=== PATIENT | male | born 1965 | race Caucasian/White ===

== ENCOUNTER → 2017-02-06 | Outpatient (CLI) | payer OTHER ==
[2014-08-10 16:12] VITALS: BP 138/77
--- NOTE | 2017-02-06 16:59 | CT ---
HISTORY: Right hip pain. Right hip prosthesis was removed in 2014 secondary to infection with spacer placement. Study: CT pelvis and right hip without contrast Comparison: CT abdomen/pelvis dated August 10, 2014. Technique: Multiple axial images of the right hip and pelvis without administration of IV contrast. Sagittal and coronal reformats were performed and reviewed. 3D reformats were also performed. Dose re duction techniques including Automated Exposure Control (AEC) and adjustment of mA and kV were utiliz ed. 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 There is posterior displacement and fracture through the bone of the stem of the right femoral prosthesis. This is of unknown chronicity given the lack of comparison. The spacing material is part ially subluxed posteriorly at the abnormal appearing acetabulum. Large associated hip effusion. There is a motheaten appearance of the remaining bones of the proximal right femur. A decompression screw is seen within the left femoral head and appears intact. Remaining osseous structures appear intact. Remaining visualized soft tissue structures appear normal. IMPRESSION: 1. Likely chronic findings of the right hip as above. However, acute on chronic infection not entirel y excluded. If clinically concerned consider a 3 phase bone scan with sulfur colloid subtraction. 2. Remaining exam is unremarkable. Reported By:
== END | disposition home or self-care (01) | DRG 923 ==
LOC: RAD 09:48
PROVIDERS: ATTEND Orthopaedic Surgery
DX: T84.51XS Infection and inflammatory reaction due to internal right hip prosthesis, sequela (principal)
CPT/HCPCS: 73700

== ENCOUNTER → 2017-03-26 | Outpatient (CLI) | payer OTHER ==
[2014-08-10 16:12] VITALS: BP 138/77
[2017-03-26 11:33] LABS: BILIRUBIN,URINE NEGATIVE (NEGATIVE); BLOOD/HEMOGLOBIN,URINE NEGATIVE (NEGATIVE); GLUCOSE, URINE NEGATIVE (NEGATIVE); KETONES,URINE NEGATIVE (NEGATIVE); LEUKOCYTE ESTERASE ,URINE 1+ (NEGATIVE); NITRITES,URINE NEGATIVE (NEGATIVE); PROTEIN,URINE 1+ (NEGATIVE); UROBILINOGEN,URINE NORMAL (NORMAL)
[2017-03-26 11:36] LABS: BASOPHILS % (AUTO) 0.2 % (0.2-1.0); EOSINOPHILS # (AUTO) 0.3 x10^3/uL (0.0-0.2); EOSINOPHILS % (AUTO) 4.7 % (0.9-2.9); HEMATOCRIT 35.9 % (42.0-54.0); HEMOGLOBIN 12.2 g/dL (13.5-18.0); LYMPHOCYTES # (AUTO) 1.4 X10^3/uL (1.3-2.9); LYMPHOCYTES % (AUTO) 19.5 % (21.0-51.0); MEAN CORPUSCULAR HEMOGLOBIN 26.6 pg (27.0-34.0); MEAN CORPUSCULAR HGB CONC 33.9 g/dL (33.0-35.0); MEAN CORPUSCULAR VOLUME 78.5 fL (80.0-100.0); MEAN PLATELET VOLUME 8.1 fL (7.4-11.0); MONOCYTES # (AUTO) 0.5 x10^3/uL (0.3-0.8); MONOCYTES % (AUTO) 6.8 % (0.0-13.0); NEUTROPHILS # (AUTO) 5.1 x10^3/uL (2.2-4.8); NEUTROPHILS % (AUTO) 68.8 % (42.0-75.0); PLATELET COUNT 316 X10^3/uL (150.0-450.0); RED BLOOD COUNT 4.58 X10^6/uL (4.7-6.0); RED CELL DISTRIBUTION WIDTH 15.7 % (11.6-16.5); WHITE BLOOD COUNT 7.3 X10^3/uL (3.6-10.0)
[2017-03-26 11:41] LABS: APPEARANCE,URINE HAZY (CLEAR); BACTERIA,URINE TRACE /HPF (NEGATIVE); COLOR,URINE YELLOW (YELLOW); HYALINE CASTS, URINE FEW /LPF (NEGATIVE); RBC,URINE 0-2 /HPF (NEGATIVE); SQUAMOUS EPITHELIAL CELL,UR FEW /HPF (NEGATIVE)
[2017-03-26 11:46] LABS: ALANINE AMINOTRANSFERASE 18 Units/L (12-78); ALBUMIN 3.5 g/dL (3.4-5.0); ALKALINE PHOSPHATASE 113 Units/L (46-116); ASPARTATE AMINO TRANSFERASE 15 Units/L (15-37); BLOOD UREA NITROGEN 7 mg/dL (7-18); CALCIUM 8.7 mg/dL (8.5-10.1); CARBON DIOXIDE 29.6 mmol/L (21-32); CHLORIDE 102 mmol/L (98-107); COR NA(FOR HYPERGLY) 140 mmol/L (136-145); SODIUM 139 mmol/L (136-145); TOTAL PROTEIN 7.8 g/dL (6.4-8.2); eGFR BLACK RACES > 60 (>60); eGFR NON BLACK RACES > 60 (>60)
[2017-03-26 12:14] LABS: ERYTHROCYTE SEDIMENTATION RATE 41 MM/HOUR (0-15)
--- NOTE | 2017-03-26 12:55 | RAD ---
HISTORY: Preoperative exam for hip surgery Study: Two views of the chest Comparison: None Findings: The trachea is midline. The cardiac silhouette is unremarkable. Interstitial changes seen within marcio th lungs. IMPRESSION: 1. No acute cardiopulmonary disease. Reported By:
== END ==
LOC: LAB 10:55
PROVIDERS: ATTEND Orthopaedic Surgery
DX: Z01.818 Encounter for other preprocedural examination (principal); Z01.810 Encounter for preprocedural cardiovascular examination; Z01.811 Encounter for preprocedural respiratory examination; Z11.8 Encounter for screening for other infectious and parasitic diseases; Z79.899 Other long term (current) drug therapy; T84.51XS Infection and inflammatory reaction due to internal right hip prosthesis, sequela; X58.XXXS Exposure to other specified factors, sequela
CPT/HCPCS: 36415; 71020; 80053; 81001; 85025; 85652; 86140; 87640; 87641; 93005; 93010

== ENCOUNTER 2017-04-01 13:08 | Inpatient (IN) | payer OTHER ==
[2017-04-01] MEDS ORDERED: D5 LR 1000 ML 1,000 ML IV ONE (13:23)
[2017-04-01] MEDS ORDERED: DUONEB 0.5 MG/3 MG NEB ONE (13:36)
[2017-04-01] MEDS ORDERED: HYDROGEN PEROXIDE 3% ONE (13:50)
[2017-04-01] MEDS ORDERED: DILAUDID INJ ONE (13:56)
[2017-04-01] MEDS ORDERED: FENTANYL INJ 250 mcg ONE (13:57)
[2017-04-01] MEDS ORDERED: LR 1000 ML IV 1,000 ML IV ONE ×3 (14:55→18:50)
[2017-04-01] MEDS: VANCOMYCIN HCL 1 GM VIAL ONE ×2 (15:17→15:50)
[2017-04-01] MEDS: BACTROBAN OINT ONE ×2 (15:18→16:06)
[2017-04-01] MEDS ORDERED: NS IRRIGATION 1000 ML 1,000 ML with BACITRACIN VIAL 50,000 UNT IR ONE ×2 (15:19)
[2017-04-01] MEDS: NS 100 ML IV 100 ML IV ONE ×2 (15:19→15:50)
[2017-04-01] MEDS ORDERED: NS IRRIGATION 3000 ML 3,000 ML with BACITRACIN VIAL 50,000 UNT IR ONE ×4 (15:20)
[2017-04-01] MEDS ORDERED: NORCURON INJ 10 MG VIAL ONE (15:31)
[2017-04-01] MEDS ORDERED: EPHEDRINE SULFATE INJ ONE (15:31)
[2017-04-01] MEDS ORDERED: VERSED ONE (15:31)
[2017-04-01] MEDS ORDERED: DIPRIVAN VIAL ONE (15:31)
[2017-04-01] MEDS ORDERED: NEOSTIGMINE INJ ONE (15:31)
[2017-04-01] MEDS ORDERED: XYLOCAINE 2 % (PLAIN) ONE (15:31)
[2017-04-01] MEDS ORDERED: QUELICIN (OR ANECTINE) ONE (15:31)
[2017-04-01] MEDS ORDERED: ROBINUL ONE (15:31)
[2017-04-01] MEDS ORDERED: ZOFRAN INJ 4 MG VIAL ONE (15:31)
[2017-04-01] MEDS ORDERED: POLYMYXIN B SULFATE ONE (18:38)
[2017-04-01] MEDS ORDERED: BACITRACIN VIAL ONE (18:39)
[2017-04-01] MEDS ORDERED: NS 500 ML IV 500 ML IV ONE (18:50)
[2017-04-01] MEDS ORDERED: DILAUDID INJ IVP PRN (20:50)
[2017-04-01] MEDS ORDERED: ZOFRAN INJ 4 MG VIAL IVP PRN (20:50)
[2017-04-01] MEDS ORDERED: PHENERGAN INJ 25 MG IVP PRN (20:50)
[2017-04-01] MEDS ORDERED: REGLAN INJ 10 MG VIAL IVP PRN (20:50)
[2017-04-01] MEDS ORDERED: BENADRYL INJ 50 MG VIAL IVP PRN (20:50)
[2017-04-01] MEDS: MORPHINE SULFATE PCA 30 MG IV PRN (21:52)
[2017-04-01] MEDS ORDERED: NS 250 ML IV 250 ML IV ONE (22:18)
[2017-04-01] MEDS: VANCOMYCIN HCL 500 MG VIAL 500 MG in NS 100 ML IV + SPIKE MINIBAG* 100 ML IV SCH (22:24)
[2017-04-01 23:05] VITALS: BMI 26.6
[2017-04-01] MEDS ORDERED: FLUVIRIN IM ONE (23:05)
[2017-04-02] MEDS ORDERED: NS 250 ML IV 250 ML IV ONE (01:04)
[2017-04-02 06:10] LABS: BASOPHILS # (AUTO) 0.1 X10^3/uL (0.0-0.1); BASOPHILS % (AUTO) 0.5 % (0.2-1.0); EOSINOPHILS # (AUTO) 0.1 x10^3/uL (0.0-0.2); EOSINOPHILS % (AUTO) 0.6 % (0.9-2.9); HEMATOCRIT 34.5 % (42.0-54.0); HEMOGLOBIN 11.6 g/dL (13.5-18.0); LYMPHOCYTES # (AUTO) 1.6 X10^3/uL (1.3-2.9); LYMPHOCYTES % (AUTO) 10.7 % (21.0-51.0); MEAN CORPUSCULAR HEMOGLOBIN 27.6 pg (27.0-34.0); MEAN CORPUSCULAR HGB CONC 33.5 g/dL (33.0-35.0); MEAN CORPUSCULAR VOLUME 82.4 fL (80.0-100.0); MEAN PLATELET VOLUME 8.8 fL (7.4-11.0); MONOCYTES # (AUTO) 0.9 x10^3/uL (0.3-0.8); MONOCYTES % (AUTO) 5.9 % (0.0-13.0); NEUTROPHILS # (AUTO) 12.2 x10^3/uL (2.2-4.8); NEUTROPHILS % (AUTO) 82.3 % (42.0-75.0); PLATELET COUNT 280 X10^3/uL (150.0-450.0); RED BLOOD COUNT 4.19 X10^6/uL (4.7-6.0); WHITE BLOOD COUNT 14.9 X10^3/uL (3.6-10.0)
[2017-04-02 06:14] LABS: BLOOD UREA NITROGEN 8 mg/dL (7-18); CALCIUM 7.8 mg/dL (8.5-10.1); CHLORIDE 105 mmol/L (98-107); CREATININE 1.13 mg/dL (0.70-1.30); SODIUM 140 mmol/L (136-145); eGFR BLACK RACES > 60 (>60); eGFR NON BLACK RACES > 60 (>60)
[2017-04-02] MEDS: MORPHINE SULFATE PCA 30 MG IV PRN (07:15)
[2017-04-02] MEDS ORDERED: NS 500 ML IV 500 ML IV ONE (08:11)
[2017-04-02] MEDS ORDERED: SNACK - Diabetic Appropriate PO SCH (08:15)
[2017-04-02] MEDS: VANCOMYCIN HCL 500 MG VIAL 500 MG in NS 100 ML IV + SPIKE MINIBAG* 100 ML IV SCH ×2 (08:19→21:35)
[2017-04-02] MEDS ORDERED: FLUVIRIN IM ONE (09:29)
--- NOTE | 2017-04-02 09:57 | DR.CONSULT ---
Consult - Consultation for Day of: Date: 04/02/17 - Chief Complaint Chief Complaint: RIGHT TOTAL HIP REVISION - Allergies Allergies/Adverse Reactions: Allergies Allergy/AdvReac Type Severity Reaction Status Date / Time acetaminophen [From Percocet] Allergy Verified 04/01/17 13:54 aspirin Allergy Verified 04/01/17 13:54 codeine Allergy Verified 04/01/17 13:54 iodine Allergy Verified 04/01/17 13:54 oxycodone [From Percocet] Allergy Verified 04/01/17 13:54 Penicillins Allergy Verified 04/01/17 13:54 povidone-iodine Allergy Verified 04/01/17 13:54 [From Betadine] soap [From Betadine] Allergy Verified 04/01/17 13:54 - History of Present Illness History of Present Illness: IS STATUS POST REVISION OF RIGHT TOTAL HIP DUE TO AN INFECTED SPACER AND A MEDIAL DEFICIENCY IN THE RIGHT FEMUR. REVISION WAS DONE YESTERDAY AFTERNOON BY . APPARENTLY, PATIENT HAD HYPOTENSION AND TACHYCARDIA IN PACU YESTERDAY AND WAS ADMITTED TO THE INTENSIVE CARE UNIT FOR FURTHER TREATMENT AND EVALUATION. TODAY, HE IS ALERT AND ORIENTED , LYING IN BED ON MORNING ROUNDS. HE IS NOTED WITH COMPLAINTS OF RIGHT HIP PAIN. ON EXAMINATION, LUNGS ARE NOTED CLEAR TO AUSCULTATION. ABDOMEN IS SOFT, ROUND, AND NON TENDER WITH NORMAL BOWEL SOUNDS NOTED IN ALL QUADRANTS. SURGICAL DRESSING TO RIGHT HIP IS NOTED TO BE DRY AND INTACT WITH NO SIGNS OR SYMPTOMS OF INFECTION NOTED AROUND SITE. A HEMOVAC IS NOTED WITH BRIGHT RED BLOOD. HE IS UTILIZING OXYGEN VIA NASAL CANNULA AT 2L/MIN AT THIS TIME. PATIENT IS ALSO NOTED TO BE UTILIZING A MORPHINE SLATE ROOFER HELPER AT THIS TIME. SINUS TACHYCARDIA IS NOTED ON THE JOINERY FACTORY WORKER WITH HR 112. HIS VITAL SIGNS THIS MORNING ARE 99.7-112-96 %-12-97/52. A CBC AND BMP WERE OBTAINED THIS MORNING. ABNORMAL LAB VALUES INCLUDE THE FOLLOWING: WBC 1.49, RBC 4.19, HGB 11.6, HCT 34.5, GLUCOSE 106, CALCIUM 7.8. CULTURES OF THE RIGHT HIP WERE OBTAINED DURING SURGERY AND ARE PENDING RESULTS. PATIENT HAS VANCOMYCIN 500MG IV BID ORDERED FOR PROPHYLAXIS. TODAY, WE WILL CONTINUE WITH CURRENT PLAN OF CARE FOR PATIENT. WE WILL OBTAIN AN ECHOCARDIOGRAM TODAY. WE PLAN TO FOLLOW UP WITH AM LABS AND CONTINUE TO MONITOR PATIENT. - Past Medical History Past Medical History: COPD, Depression, Diabetes Additional Medical History: TIA, GASTROPARESIS, CHRONIC BACK PAIN, HEPATITIS B - Past Surgical History Surgical History: Appendectomy, Cholecystectomy, Ortho Surgery - Family History Family Medical History: Cancer, [place] - Social History Does patient currently use any type of tobacco product: Yes Have you used tobacco products in the last 12 months: Yes Type of Tobacco Use: Cigarettes How many years tobacco product used: 30 Does any household member use tobacco: Yes Alcohol Use: None Drug Use: None - Medications Home Medications: Donepezil HCl [Aricept] 10 mg PO DAILY 04/01/17 [History Confirmed 04/01/17] Fentanyl 25 Mcg/Hr [DURAGESIC PATCH 25 mcg/hr *] 25 mcg TD Q2D 04/01/17 [ History Confirmed 04/01/17] Ibuprofen [MOTRIN TAB 800 MG *] 800 mg PO Q8H PRN 04/01/17 [History Confirmed ] Memantine HCl [Namenda] 20 mg PO DAILY 04/01/17 [History Confirmed 04/01/17] Tizanidine HCl [Zanaflex 4 mg] 1.5 tab PO Q8H 04/01/17 [History Confirmed ] Venlafaxine HCl [Venlafaxine HCl ER] 150 mg PO DAILY 04/01/17 [History Confirmed 04/01/17] Vilazodone HCl [Viibryd] 40 mg PO DAILY 04/01/17 [History Confirmed 04/01/17] - Review of Systems Constitutional: No Symptoms Reported Eyes: No Symptoms Reported ENT: No Symptoms Reported Respiratory: No Symptoms Reported Cardiovascular: No Symptoms Reported Gastrointestinal: No Symptoms Reported Genitourinary: No Symptoms Reported Musculoskeletal: Other (RIGHT HIP PAIN) Skin: Wound (SURGICAL WOUND) Neurological: No Symptoms Reported - Physical Exam Vital Signs: Temperature 99.7 F Pulse Rate [Apical] 103 Pulse Rate 128 Respiratory Rate 14 Blood Pressure [Left Arm] 95/54 Blood Pressure 112/57 O2 Sat by Pulse Oximetry 94 Oriented: Normal Eyes: Normal Ear: Normal Nose: Normal Throat: Normal Respiratory: Clear Throughout Cardiovascular: Tachycardia : Normal Auscultation: Bowel Sounds: Normal Palpation: Normal Tenderness: Normal Skin: Wound (RIGHT HIP SURGICAL WOUND WITH DRESSING DRY AND INTACT ) Musculoskeletal: Right, Hip, Tender Psychiatric: Normal Mood Description: Calm Affect: Normal Speech Pattern: Clear - Plan Plan: CONTINUE MORPHINE SLATE ROOFER HELPER FOR PAIN CONTROL, REVIEW HOME MEDICATIONS, OBTAIN ECHO, FOLLOW UP WITH AM LABS. CONTINUE TO MONITOR.
[2017-04-02] MEDS ORDERED: NORCO 10/325 TAB PO PRN (11:23)
[2017-04-02] MEDS ORDERED: MORPHINE SULFATE INJ 2 MG INJ IVP PRN (11:25)
[2017-04-02] MEDS ORDERED: LOVENOX INJ 30 MG SYR SC SCH (12:00)
[2017-04-02] MEDS ORDERED: XYLOCAINE 1 % (PLAIN) ONE (12:34)
--- NOTE | 2017-04-02 13:18 | PCM.PROG ---
Progress Note - Progress Note for Day of Date: 04/02/17 (POD 1 ) - Subjective Subjective: He is post spacer exchnage. had issues with his BP post surgery and has been well since today morning. His blood pressure has stabilized. He is currently using morphine DENTAL SURGERY DOCTOR and pain seems to be well controlled. His vitals are stable afebrile. He has an abduction pillow. Postoperative x-rays show placement of spacer. No new periprosthetic fracture seen. Plan- we will shift him to the floor out of ICU as is stable. PICC line. Shift him to oral analgesics with IV analgesics for breakthrough pain. Physical therapy/ occupational therapy to get him out of the bed nonweightbearing and hip precautions. Lovenox for DVT prophylaxis. Dressing change and drain removal tomorrow. Discharge him home with instructions for follow-up and medications. - Past Medical Family Social History Allergies: Allergies acetaminophen [From Percocet] Allergy (Verified 04/01/17 13:54) aspirin Allergy (Verified 04/01/17 13:54) codeine Allergy (Verified 04/01/17 13:54) iodine Allergy (Verified 04/01/17 13:54) oxycodone [From Percocet] Allergy (Verified 04/01/17 13:54) Penicillins Allergy (Verified 04/01/17 13:54) povidone-iodine [From Betadine] Allergy (Verified 04/01/17 13:54) soap [From Betadine] Allergy (Verified 04/01/17 13:54) - Vital Signs and I&O's Vital Signs: Temperature 99.6 F Pulse Rate [Apical] 110 Pulse Rate 128 Respiratory Rate 20 Blood Pressure [Left Arm] 100/57 Blood Pressure 112/57 O2 Sat by Pulse Oximetry 96 Intake and Output: Intake & Output 03/31/17 04/01/17 04/02/17 04/03/17 11:59 11:59 11:59 11:59 Intake Total 1037 Output Total 59159 Balance -75814 - Physical Exam Oriented: Normal Eyes: Normal Ear: Normal Nose: Normal Throat: Normal Cardiovascular: Tachycardia : Normal Auscultation: Bowel Sounds: Normal Tenderness: Normal Skin: Wound (RIGHT HIP SURGICAL WOUND WITH DRESSING DRY AND INTACT ) Musculoskeletal: Right, Hip, Tender Psychiatric: Normal Mood Description: Calm Affect: Normal Speech Pattern: Clear - Laboratory and Diagnostics Result Diagrams: 04/02/17 04:55 04/02/17 04:55 Labs: 04/01/17 16:34 Hip - Right - Preliminary 04/01/17 15:50 Hip - Right - Preliminary Laboratory WBC 14.9 X10^3/uL (3.6-10.0) H 04/02/17 04:55 RBC 4.19 X10^6/uL (4.7-6.0) L 04/02/17 04:55 Hgb 11.6 g/dL (13.5-18.0) L 04/02/17 04:55 Hct 34.5 % (42.0-54.0) L 04/02/17 04:55 MCV 82.4 fL (80.0-100.0) 04/02/17 04:55 MCH 27.6 pg (27.0-34.0) 04/02/17 04:55 MCHC 33.5 g/dL (33.0-35.0) 04/02/17 04:55 RDW 16.0 % (11.6-16.5) 04/02/17 04:55 Plt Count 280 X10^3/uL (150.0-450.0) 04/02/17 04:55 MPV 8.8 fL (7.4-11.0) 04/02/17 04:55 Neut % 82.3 % (42.0-75.0) H 04/02/17 04:55 Lymph % 10.7 % (21.0-51.0) L 04/02/17 04:55 [place] % 5.9 % (0.0-13.0) 04/02/17 04:55 Eos % 0.6 % (0.9-2.9) L 04/02/17 04:55 Baso % 0.5 % (0.2-1.0) 04/02/17 04:55 Neut # 12.2 x10^3/uL (2.2-4.8) H 04/02/17 04:55 Lymph # 1.6 X10^3/uL (1.3-2.9) 04/02/17 04:55 [place] # 0.9 x10^3/uL (0.3-0.8) H 04/02/17 04:55 Eos # 0.1 x10^3/uL (0.0-0.2) 04/02/17 04:55 Baso # 0.1 X10^3/uL (0.0-0.1) 04/02/17 04:55 Absolute Nucleated RBC 0.0 /100WBC 04/02/17 04:55 Sodium 140 mmol/L (136-145) 04/02/17 04:55 Corrected Sodium TNP 04/02/17 04:55 Potassium 4.6 mmol/L (3.5-5.1) 04/02/17 04:55 Chloride 105 mmol/L (98-107) 04/02/17 04:55 Carbon Dioxide 30.0 mmol/L (21-32) 04/02/17 04:55 BUN 8 mg/dL (7-18) 04/02/17 04:55 Creatinine 1.13 mg/dL (0.70-1.30) 04/02/17 04:55 Est GFR (MDRD) Af Amer > 60 (>60) 04/02/17 04:55 Est GFR (MDRD) Non-Af > 60 (>60) 04/02/17 04:55 Glucose 106 mg/dL (65-99) H 04/02/17 04:55 POC Glucose (mg/dL) 122 mg/dL (65-99) H 04/02/17 11:34 Calcium 7.8 mg/dL (8.5-10.1) L 04/02/17 04:55 Blood Type O NEGATIVE 04/01/17 17:30 Antibody Screen Negative 04/01/17 17:30 Crossmatch See Detail 04/01/17 17:30 - Plan (1) Infected prosthetic hip Status: Acute (2) Mary Grace-prosthetic femoral shaft fracture Status: Acute
--- NOTE | 2017-04-02 13:50 | DR.UPDATE ---
H&P Update History and Physical Update: History and Physical reviewed and patient examined. Changes noted: NO Yes with the following:agree with H&P from Dr Templeton. will perform PICC line Procedures (ALL) - Central Line Placement PCM.CLCO: written consent Time out performed: Yes Patient placed pm monitor/pulse ox: Yes prep: mask, gown, gloves, other Centrial line prep: chlorhexidine scrub Local anesthsia used: lidocane 1% Ultrasound used for placement: Yes Central line lumen ininserted: double (trimmed to 47cm. flush at skin. left basilic) Post procedure: good blood return, all ports aspirated, flushed,capped, sterile dressing applied Post procedure xray: tip oc catheter in good position, other (catheter migrating up IJ. will attempt to redirect) Patient tolerated procedure: Yes Complications: none
--- NOTE | 2017-04-02 14:44 | OR.GENERIC ---
Post-Op Note Generic - Post-Op Note Operative Report: Preoperative diagnosis- infected RIGHT hip, spacer in place Postoperative diagnosis- infected RIGHT hip prosthesis, spacer in place, periprosthetic fracture. Procedure- reinsertion of spacer Open reduction internal fixation of the periprosthetic fracture with cables. Indication- patient is a pleasant 51-year-old male, with a very long history of further prolonged, with some RIGHT hip. 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 Patient reported he had an infection which was revised to her revision total hip arthroplasty. That revision total hip arthroplasty, infected about a year and half ago. He was supposed to be treated with a two-stage procedure with an spacer and a second stage definitive prosthesis fixation. Patient reports he got spacer and he was not able to follow-up with his doctor because of Dr. martinez out of the town and there is no real screws which take care of him. Patient has been wheelchair bound for the last 1-1/2 years. He also reports he had a fall during this time and sustained an injury. Patient went to the emergency room and [facility] and was told by the emergency room physician that everything is fine. He presented to my office with the burning and pain. X-rays and CT confirmed that the spacer was noted in the femoral canal. He continued to have infection. He was taken through the procedure was two-stage versus 3 stitcher. Complications including but not limited to persistent pain, limitation and stiffness of the hip for, gait abnormalities, need for further procedures. He will proceed to surgery. Patient seen in preoperative holding area. Preoperative antibiotics thank for the need of cultures. Again consent revisited. Patient brought to the operating room. Patient placed under general anesthesia with endotracheal intubation. Placed on the lateral position with pegboard. RIGHT intertrochanteric. An incision made over the SCAR corresponds to posterior exposure posterior approach to the hip. Dissection carried down through the scar tissue maintaining hemostasis. Tensor fascia identified and dissection carried down distally to proximally. Hip joint exposed. The spacer was dislocated after extensive release of further scar tissue around femur. Curved osteotome used around the trochanter to release any adhesions. Spacer also exposed distally. Spacer taken out in toto. An rent seen in the proximal femur corresponding to the prosthesis coming out of the femur noted. 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 The fragments were debrided. The canal was debrided extensively with a back welder setter electron beam machine as well as reamers. Tissue sent to pathology for culture and sensitivity. Extensive scarring noted around the acetabulum. Biofilm noted. Thoroughly curettaged to expose the floor. Inferiorly deficient to Mr. Ayleen wall noted. Curetting down to expose the bleeding to stop surface. At this time a trial spacer was placed and reduced. It was found to be stable. So a small 4-600 spacer was placed in the femur. The rest of the bony fragments were placed on the defect and was cabled. 3 cables were used. The hydrocephalus placed in the fracture site to fix the spacer. Thorough irrigation was done and hemostasis was maintained and wound was closed or a drain.
[2017-04-02] MEDS ORDERED: MORPHINE SULFATE PCA 30 MG IV PRN (16:39)
--- NOTE | 2017-04-02 16:48 | RAD ---
History: PICC line placement. Study: Portable chest. Comparison: Chest x-ray dated same day at 3:26 a.m. p.m. Findings: Interval repositioning of a left PICC line whose tip overlies the right cavoatrial junction . The cardiac silhouette appears unchanged. Lung aeration appears unchanged. No obvious pneumothorax. The osseous structures appear normal for age. Impression: 1. Left PICC line that appears to be in good position. 2. No significant change in lung aeration. Reported By:
[2017-04-02] MEDS: MORPHINE SULFATE INJ 2 MG INJ IVP PRN ×3 (16:50→23:30)
[2017-04-02] MEDS: NORCO 10/325 TAB PO PRN ×2 (16:51→21:35)
[2017-04-02] MEDS: NS 1000 ML 1,000 ML IV SCH (21:36)
[2017-04-02] MEDS: SNACK - Diabetic Appropriate PO SCH (21:36)
[2017-04-03] MEDS: NORCO 10/325 TAB PO PRN ×2 (04:42→10:06)
[2017-04-03 05:46] LABS: BASOPHILS # (AUTO) 0.1 X10^3/uL (0.0-0.1); BASOPHILS % (AUTO) 0.9 % (0.2-1.0); EOSINOPHILS # (AUTO) 0.3 x10^3/uL (0.0-0.2); EOSINOPHILS % (AUTO) 3.6 % (0.9-2.9); HEMATOCRIT 26.2 % (42.0-54.0); HEMOGLOBIN 9.1 g/dL (13.5-18.0); LYMPHOCYTES # (AUTO) 1.5 X10^3/uL (1.3-2.9); LYMPHOCYTES % (AUTO) 19.8 % (21.0-51.0); MEAN CORPUSCULAR HEMOGLOBIN 28.3 pg (27.0-34.0); MEAN CORPUSCULAR HGB CONC 34.8 g/dL (33.0-35.0); MEAN CORPUSCULAR VOLUME 81.5 fL (80.0-100.0); MEAN PLATELET VOLUME 8.7 fL (7.4-11.0); MONOCYTES # (AUTO) 0.6 x10^3/uL (0.3-0.8); NEUTROPHILS # (AUTO) 5.3 x10^3/uL (2.2-4.8); NEUTROPHILS % (AUTO) 67.7 % (42.0-75.0); PLATELET COUNT 205 X10^3/uL (150.0-450.0); RED BLOOD COUNT 3.22 X10^6/uL (4.7-6.0); RED CELL DISTRIBUTION WIDTH 15.9 % (11.6-16.5); WHITE BLOOD COUNT 7.8 X10^3/uL (3.6-10.0)
[2017-04-03 05:48] LABS: BLOOD UREA NITROGEN 7 mg/dL (7-18); CARBON DIOXIDE 32.8 mmol/L (21-32); CHLORIDE 102 mmol/L (98-107); COR NA(FOR HYPERGLY) 138 mmol/L (136-145); CREATININE 0.86 mg/dL (0.70-1.30); SODIUM 137 mmol/L (136-145); eGFR BLACK RACES > 60 (>60); eGFR NON BLACK RACES > 60 (>60)
[2017-04-03] MEDS ORDERED: MOTRIN TAB 800 MG PO ONE ×2 (07:38→07:40)
[2017-04-03] MEDS: VANCOMYCIN HCL 500 MG VIAL 500 MG in NS 100 ML IV + SPIKE MINIBAG* 100 ML IV SCH (08:14)
[2017-04-03] MEDS: LOVENOX INJ 30 MG SYR SC SCH (08:15)
[2017-04-03] MEDS: MORPHINE SULFATE INJ 2 MG INJ IVP PRN (10:06)
[2017-04-03] MEDS ORDERED: MOTRIN TAB 800 MG PO PRN (10:08)
[2017-04-03] MEDS ORDERED: FENTANYL 12 MCG TD SCH (10:15)
[2017-04-03] MEDS ORDERED: METFORMIN HCL PO SCH (10:15)
[2017-04-03] MEDS ORDERED: GLUCOPHAGE ONE (11:01)
[2017-04-03] MEDS: ARICEPT TAB 10 MG PO SCH (11:09)
[2017-04-03] MEDS: PriLOSEC PO SCH (11:09)
[2017-04-03] MEDS: EFFEXOR XR 150 MG CAP PO SCH (11:10)
[2017-04-03] MEDS: VILAZODONE HCL 40 MG PO SCH (21:05)
[2017-04-03] MEDS: MEMANTINE HCL PO SCH (21:06)
[2017-04-03] MEDS: NS 1000 ML 1,000 ML IV SCH ×2 (21:06→21:48)
[2017-04-03] MEDS: PATIENT'S HOME MEDICATION TD SCH (21:07)
[2017-04-03] MEDS: SNACK - Diabetic Appropriate PO SCH (21:09)
[2017-04-03] MEDS: GLUCOPHAGE XR PO SCH (21:47)
[2017-04-04 06:01] LABS: BASOPHILS # (AUTO) 0.1 X10^3/uL (0.0-0.1); BASOPHILS % (AUTO) 0.7 % (0.2-1.0); EOSINOPHILS # (AUTO) 0.3 x10^3/uL (0.0-0.2); HEMATOCRIT 27.1 % (42.0-54.0); HEMOGLOBIN 9.4 g/dL (13.5-18.0); LYMPHOCYTES # (AUTO) 1.2 X10^3/uL (1.3-2.9); LYMPHOCYTES % (AUTO) 13.1 % (21.0-51.0); MEAN CORPUSCULAR HEMOGLOBIN 27.9 pg (27.0-34.0); MEAN CORPUSCULAR HGB CONC 34.6 g/dL (33.0-35.0); MEAN CORPUSCULAR VOLUME 80.7 fL (80.0-100.0); MEAN PLATELET VOLUME 8.4 fL (7.4-11.0); MONOCYTES # (AUTO) 0.6 x10^3/uL (0.3-0.8); MONOCYTES % (AUTO) 6.5 % (0.0-13.0); NEUTROPHILS # (AUTO) 7.1 x10^3/uL (2.2-4.8); NEUTROPHILS % (AUTO) 76.7 % (42.0-75.0); PLATELET COUNT 209 X10^3/uL (150.0-450.0); RED BLOOD COUNT 3.36 X10^6/uL (4.7-6.0); RED CELL DISTRIBUTION WIDTH 15.5 % (11.6-16.5); WHITE BLOOD COUNT 9.2 X10^3/uL (3.6-10.0)
[2017-04-04 06:15] LABS: BLOOD UREA NITROGEN 5 mg/dL (7-18); CALCIUM 8.3 mg/dL (8.5-10.1); CARBON DIOXIDE 31.3 mmol/L (21-32); CHLORIDE 100 mmol/L (98-107); CREATININE 0.72 mg/dL (0.70-1.30); SODIUM 136 mmol/L (136-145); eGFR BLACK RACES > 60 (>60); eGFR NON BLACK RACES > 60 (>60)
[2017-04-04] MEDS: NS 1000 ML 1,000 ML IV SCH ×3 (08:47→16:56)
[2017-04-04] MEDS: EFFEXOR XR 150 MG CAP PO SCH (08:51)
[2017-04-04] MEDS: LOVENOX INJ 30 MG SYR SC SCH (08:51)
[2017-04-04] MEDS: PriLOSEC PO SCH (08:51)
[2017-04-04] MEDS: ARICEPT TAB 10 MG PO SCH (08:51)
[2017-04-04] MEDS: VILAZODONE HCL 40 MG PO SCH (08:53)
[2017-04-04] MEDS: MEMANTINE HCL PO SCH (08:53)
[2017-04-04] MEDS: GLUCOPHAGE XR PO SCH ×3 (09:03→20:54)
[2017-04-04] MEDS: CHECK PATCH XX SCH ×2 (09:04→20:53)
[2017-04-04] MEDS: NORCO 10/325 TAB PO PRN ×2 (09:38→20:30)
[2017-04-04] MEDS ORDERED: MILK OF MAGNESIA PO PRN (19:23)
[2017-04-04] MEDS: COLACE CAP 100 MG PO SCH ×2 (20:53→20:54)
[2017-04-04] MEDS: SNACK - Diabetic Appropriate PO SCH (20:53)
[2017-04-04] MEDS: FLEXERIL TAB 10 MG PO SCH (21:56)
[2017-04-05] MEDS: NS 1000 ML 1,000 ML IV SCH ×3 (03:18→17:24)
[2017-04-05] MEDS: FLEXERIL TAB 10 MG PO SCH ×3 (05:51→21:49)
[2017-04-05] MEDS: LOVENOX INJ 30 MG SYR SC SCH (08:52)
[2017-04-05] MEDS: ARICEPT TAB 10 MG PO SCH (08:53)
[2017-04-05] MEDS: EFFEXOR XR 150 MG CAP PO SCH (08:53)
[2017-04-05] MEDS: PriLOSEC PO SCH (08:53)
[2017-04-05] MEDS: GLUCOPHAGE XR PO SCH ×2 (08:53→21:49)
[2017-04-05] MEDS: MEMANTINE HCL PO SCH (09:00)
[2017-04-05] MEDS: VILAZODONE HCL 40 MG PO SCH (09:01)
[2017-04-05] MEDS: PATIENT'S HOME MEDICATION TD SCH (11:10)
[2017-04-05] MEDS: NORCO 10/325 TAB PO PRN (13:05)
[2017-04-05 14:31] LABS: BASOPHILS # (AUTO) 0.1 X10^3/uL (0.0-0.1); EOSINOPHILS # (AUTO) 0.3 x10^3/uL (0.0-0.2); EOSINOPHILS % (AUTO) 3.8 % (0.9-2.9); HEMOGLOBIN 8.6 g/dL (13.5-18.0); LYMPHOCYTES # (AUTO) 1.2 X10^3/uL (1.3-2.9); MEAN CORPUSCULAR HEMOGLOBIN 27.8 pg (27.0-34.0); MEAN CORPUSCULAR HGB CONC 34.3 g/dL (33.0-35.0); MEAN CORPUSCULAR VOLUME 81.2 fL (80.0-100.0); MEAN PLATELET VOLUME 7.2 fL (7.4-11.0); MONOCYTES # (AUTO) 0.6 x10^3/uL (0.3-0.8); MONOCYTES % (AUTO) 8.5 % (0.0-13.0); NEUTROPHILS # (AUTO) 5.4 x10^3/uL (2.2-4.8); NEUTROPHILS % (AUTO) 70.7 % (42.0-75.0); PLATELET COUNT 266 X10^3/uL (150.0-450.0); RED BLOOD COUNT 3.08 X10^6/uL (4.7-6.0); RED CELL DISTRIBUTION WIDTH 15.9 % (11.6-16.5); WHITE BLOOD COUNT 7.6 X10^3/uL (3.6-10.0)
[2017-04-05 14:49] LABS: ALANINE AMINOTRANSFERASE 24 Units/L (12-78); ALBUMIN 2.2 g/dL (3.4-5.0); ALKALINE PHOSPHATASE 86 Units/L (46-116); ASPARTATE AMINO TRANSFERASE 23 Units/L (15-37); BLOOD UREA NITROGEN 7 mg/dL (7-18); CALCIUM 8.3 mg/dL (8.5-10.1); CARBON DIOXIDE 32.2 mmol/L (21-32); CHLORIDE 101 mmol/L (98-107); COR CA(FOR HYPOALB) 9.7 mg/dL (8.5-10.1); CREATININE 0.82 mg/dL (0.70-1.30); SODIUM 138 mmol/L (136-145); TOTAL PROTEIN 6.4 g/dL (6.4-8.2); eGFR BLACK RACES > 60 (>60); eGFR NON BLACK RACES > 60 (>60)
[2017-04-05] MEDS ORDERED: MAG-OX TAB PO PRN (15:13)
[2017-04-05] MEDS ORDERED: MAGNESIUM SULFATE 1 GM/100 mL PREMIX 1 GM/100 ML BAG IV PRN (15:13)
[2017-04-05] MEDS ORDERED: K-RIDER 10 MEQ/NS 100 ML 10 MEQ/100 ML BAG IV PRN (15:13)
[2017-04-05] MEDS: K-LYTE EFFERVESCENT PO PRN ×2 (15:39→21:50)
[2017-04-05] MEDS: MORPHINE SULFATE INJ 2 MG INJ IVP PRN (16:29)
[2017-04-05] MEDS: SNACK - Diabetic Appropriate PO SCH (21:48)
[2017-04-05] MEDS: COLACE CAP 100 MG PO SCH (21:49)
[2017-04-05] MEDS: CHECK PATCH XX SCH (21:49)
[2017-04-06] MEDS: FLEXERIL TAB 10 MG PO SCH ×3 (06:14→21:31)
[2017-04-06] MEDS: NS 1000 ML 1,000 ML IV SCH ×2 (06:15→21:30)
[2017-04-06 06:56] LABS: ALANINE AMINOTRANSFERASE 22 Units/L (12-78); ALBUMIN 2.3 g/dL (3.4-5.0); ALKALINE PHOSPHATASE 83 Units/L (46-116); ASPARTATE AMINO TRANSFERASE 19 Units/L (15-37); BLOOD UREA NITROGEN 7 mg/dL (7-18); CALCIUM 8.5 mg/dL (8.5-10.1); CARBON DIOXIDE 31.4 mmol/L (21-32); CHLORIDE 101 mmol/L (98-107); COR CA(FOR HYPOALB) 9.9 mg/dL (8.5-10.1); CREATININE 0.79 mg/dL (0.70-1.30); MAGNESIUM 1.7 mg/dL (1.7-2.9); SODIUM 140 mmol/L (136-145); TOTAL PROTEIN 6.5 g/dL (6.4-8.2); eGFR BLACK RACES > 60 (>60); eGFR NON BLACK RACES > 60 (>60)
[2017-04-06 07:02] LABS: BASOPHILS # (AUTO) 0.1 X10^3/uL (0.0-0.1); BASOPHILS % (AUTO) 1.2 % (0.2-1.0); EOSINOPHILS # (AUTO) 0.4 x10^3/uL (0.0-0.2); EOSINOPHILS % (AUTO) 5.3 % (0.9-2.9); HEMATOCRIT 25.8 % (42.0-54.0); HEMOGLOBIN 8.8 g/dL (13.5-18.0); LYMPHOCYTES # (AUTO) 1.4 X10^3/uL (1.3-2.9); LYMPHOCYTES % (AUTO) 19.1 % (21.0-51.0); MEAN CORPUSCULAR VOLUME 82.5 fL (80.0-100.0); MEAN PLATELET VOLUME 7.9 fL (7.4-11.0); MONOCYTES # (AUTO) 0.8 x10^3/uL (0.3-0.8); MONOCYTES % (AUTO) 10.8 % (0.0-13.0); NEUTROPHILS # (AUTO) 4.6 x10^3/uL (2.2-4.8); NEUTROPHILS % (AUTO) 63.6 % (42.0-75.0); PLATELET COUNT 299 X10^3/uL (150.0-450.0); RED BLOOD COUNT 3.12 X10^6/uL (4.7-6.0); RED CELL DISTRIBUTION WIDTH 15.6 % (11.6-16.5); WHITE BLOOD COUNT 7.2 X10^3/uL (3.6-10.0)
[2017-04-06] MEDS: NORCO 10/325 TAB PO PRN ×3 (09:32→21:31)
[2017-04-06] MEDS: EFFEXOR XR 150 MG CAP PO SCH (09:32)
[2017-04-06] MEDS: ARICEPT TAB 10 MG PO SCH (09:32)
[2017-04-06] MEDS: PriLOSEC PO SCH (09:32)
[2017-04-06] MEDS: MEMANTINE HCL PO SCH (09:34)
[2017-04-06] MEDS: VILAZODONE HCL 40 MG PO SCH (09:34)
[2017-04-06] MEDS: LOVENOX INJ 30 MG SYR SC SCH (09:34)
[2017-04-06] MEDS: GLUCOPHAGE XR PO SCH ×2 (09:34→21:30)
[2017-04-06] MEDS: MORPHINE SULFATE INJ 2 MG INJ IVP PRN (16:03)
[2017-04-06] MEDS: CHECK PATCH XX SCH (21:30)
[2017-04-06] MEDS: SNACK - Diabetic Appropriate PO SCH (21:30)
[2017-04-06] MEDS: COLACE CAP 100 MG PO SCH (21:30)
[2017-04-07] MEDS: NORCO 10/325 TAB PO PRN ×3 (04:32→12:35)
[2017-04-07 05:51] LABS: BASOPHILS # (AUTO) 0.1 X10^3/uL (0.0-0.1); BASOPHILS % (AUTO) 1.4 % (0.2-1.0); EOSINOPHILS # (AUTO) 0.4 x10^3/uL (0.0-0.2); EOSINOPHILS % (AUTO) 5.6 % (0.9-2.9); HEMATOCRIT 24.1 % (42.0-54.0); HEMOGLOBIN 8.4 g/dL (13.5-18.0); LYMPHOCYTES # (AUTO) 1.6 X10^3/uL (1.3-2.9); LYMPHOCYTES % (AUTO) 24.2 % (21.0-51.0); MEAN CORPUSCULAR HEMOGLOBIN 28.3 pg (27.0-34.0); MEAN CORPUSCULAR VOLUME 80.8 fL (80.0-100.0); MEAN PLATELET VOLUME 7.5 fL (7.4-11.0); MONOCYTES # (AUTO) 0.7 x10^3/uL (0.3-0.8); MONOCYTES % (AUTO) 10.7 % (0.0-13.0); NEUTROPHILS # (AUTO) 3.8 x10^3/uL (2.2-4.8); NEUTROPHILS % (AUTO) 58.1 % (42.0-75.0); PLATELET COUNT 297 X10^3/uL (150.0-450.0); RED BLOOD COUNT 2.99 X10^6/uL (4.7-6.0); RED CELL DISTRIBUTION WIDTH 15.7 % (11.6-16.5); WHITE BLOOD COUNT 6.5 X10^3/uL (3.6-10.0)
[2017-04-07 05:56] LABS: ALANINE AMINOTRANSFERASE 27 Units/L (12-78); ALBUMIN 2.3 g/dL (3.4-5.0); ALKALINE PHOSPHATASE 89 Units/L (46-116); ASPARTATE AMINO TRANSFERASE 27 Units/L (15-37); BLOOD UREA NITROGEN 9 mg/dL (7-18); CALCIUM 8.7 mg/dL (8.5-10.1); CARBON DIOXIDE 30.2 mmol/L (21-32); CHLORIDE 103 mmol/L (98-107); COR CA(FOR HYPOALB) 10.1 mg/dL (8.5-10.1); CREATININE 0.84 mg/dL (0.70-1.30); SODIUM 139 mmol/L (136-145); TOTAL PROTEIN 6.4 g/dL (6.4-8.2); eGFR BLACK RACES > 60 (>60); eGFR NON BLACK RACES > 60 (>60)
[2017-04-07] MEDS: FLEXERIL TAB 10 MG PO SCH (06:28)
[2017-04-07] MEDS: PriLOSEC PO SCH (09:05)
[2017-04-07] MEDS: GLUCOPHAGE XR PO SCH (09:05)
[2017-04-07] MEDS: VILAZODONE HCL 40 MG PO SCH (09:05)
[2017-04-07] MEDS: MEMANTINE HCL PO SCH (09:05)
[2017-04-07] MEDS: ARICEPT TAB 10 MG PO SCH (09:06)
[2017-04-07] MEDS: LOVENOX INJ 30 MG SYR SC SCH (09:06)
[2017-04-07] MEDS: EFFEXOR XR 150 MG CAP PO SCH (09:06)
[2017-04-07] MEDS: PATIENT'S HOME MEDICATION TD SCH (11:03)
[2017-04-07] MEDS ORDERED: VANCOMYCIN 1 GM PREMIX (ADDVANTAGE) 250 ML IV NR (14:00)
[2017-04-07] MEDS: MORPHINE SULFATE INJ 2 MG INJ IVP PRN (14:33)
[2017-04-07 15:47] VITALS: BP 116/74
--- NOTE | 2017-04-07 17:41 | PCM.PROG ---
Progress Note - Progress Note for Day of Date: 04/06/17 - Subjective Subjective: patient is doing well. He is getting oral pain medication at this time. Dressing clean and dry. Vital stable. Labs normal. No signs of infection at the surgical site. No fever chills or rigors. Patient has a PICC line. Currently nonweightbearing with the help of physical therapy. His final culture shows an staph epidermidis which is sensitive to vancomycin. We will start him on vancomycin 1 g every 12. We will also get troughs and peaks to taper his vancomycin dosage. Once the patient gets discharged we will have him see infectious diseases doctor. The plan is currently to have him clear the infection and the proceed with definitive sign revision total hip arthroplasty 6 weeks from now. - Past Medical Family Social History Allergies: Allergies Fish Containing Products Allergy (Unknown, Unverified 04/03/17 12:08) acetaminophen [From Percocet] Allergy (Verified 04/01/17 13:54) aspirin Allergy (Verified 04/01/17 13:54) codeine Allergy (Verified 04/01/17 13:54) iodine Allergy (Verified 04/01/17 13:54) oxycodone [From Percocet] Allergy (Verified 04/01/17 13:54) Penicillins Allergy (Verified 04/01/17 13:54) povidone-iodine [From Betadine] Allergy (Verified 04/01/17 13:54) soap [From Betadine] Allergy (Verified 04/01/17 13:54) - Vital Signs and I&O's Vital Signs: Temperature 97.7 F Pulse Rate [Apical] 99 Pulse Rate 105 Respiratory Rate 25 Blood Pressure [Left Arm] 116/74 Blood Pressure 112/57 O2 Sat by Pulse Oximetry 95 Intake and Output: Intake & Output 04/05/17 04/06/17 04/07/17 04/08/17 11:59 11:59 11:59 11:59 Intake Total 1565 1714 2315 1621 Output Total 4785 7900 1800 450 Balance -610 -764 017 2373 - Physical Exam Oriented: Normal Eyes: Normal Ear: Normal Nose: Normal Throat: Normal Cardiovascular: Tachycardia : Normal Auscultation: Bowel Sounds: Normal Tenderness: Normal Skin: Wound (RIGHT HIP SURGICAL WOUND WITH DRESSING DRY AND INTACT ) Musculoskeletal: Right, Hip, Tender Psychiatric: Normal Mood Description: Calm Affect: Normal Speech Pattern: Clear, Appropriate - Laboratory and Diagnostics Result Diagrams: 04/07/17 05:20 04/07/17 05:20 Labs: 04/01/17 15:50 Hip - Right - Final 04/01/17 16:34 Hip - Right - Final Staphylococcus Epidermidis Laboratory WBC 6.5 X10^3/uL (3.6-10.0) 04/07/17 05:20 RBC 2.99 X10^6/uL (4.7-6.0) L 04/07/17 05:20 Hgb 8.4 g/dL (13.5-18.0) L 04/07/17 05:20 Hct 24.1 % (42.0-54.0) L 04/07/17 05:20 MCV 80.8 fL (80.0-100.0) 04/07/17 05:20 MCH 28.3 pg (27.0-34.0) 04/07/17 05:20 MCHC 35.0 g/dL (33.0-35.0) 04/07/17 05:20 RDW 15.7 % (11.6-16.5) 04/07/17 05:20 Plt Count 297 X10^3/uL (150.0-450.0) 04/07/17 05:20 MPV 7.5 fL (7.4-11.0) 04/07/17 05:20 Neut % 58.1 % (42.0-75.0) 04/07/17 05:20 Lymph % 24.2 % (21.0-51.0) 04/07/17 05:20 [place] % 10.7 % (0.0-13.0) 04/07/17 05:20 Eos % 5.6 % (0.9-2.9) H 04/07/17 05:20 Baso % 1.4 % (0.2-1.0) H 04/07/17 05:20 Neut # 3.8 x10^3/uL (2.2-4.8) 04/07/17 05:20 Lymph # 1.6 X10^3/uL (1.3-2.9) 04/07/17 05:20 [place] # 0.7 x10^3/uL (0.3-0.8) 04/07/17 05:20 Eos # 0.4 x10^3/uL (0.0-0.2) H 04/07/17 05:20 Baso # 0.1 X10^3/uL (0.0-0.1) 04/07/17 05:20 Absolute Nucleated RBC 0.0 /100WBC 04/07/17 05:20 Sodium 139 mmol/L (136-145) 04/07/17 05:20 Corrected Sodium TNP 04/07/17 05:20 Potassium 3.5 mmol/L (3.5-5.1) 04/07/17 05:20 Chloride 103 mmol/L (98-107) 04/07/17 05:20 Carbon Dioxide 30.2 mmol/L (21-32) 04/07/17 05:20 BUN 9 mg/dL (7-18) 04/07/17 05:20 Creatinine 0.84 mg/dL (0.70-1.30) 04/07/17 05:20 Est GFR (MDRD) Af Amer > 60 (>60) 04/07/17 05:20 Est GFR (MDRD) Non-Af > 60 (>60) 04/07/17 05:20 Glucose 90 mg/dL (65-99) 04/07/17 05:20 POC Glucose (mg/dL) 85 mg/dL (65-99) 04/07/17 11:32 Calcium 8.7 mg/dL (8.5-10.1) 04/07/17 05:20 Corrected Calcium 10.1 mg/dL (8.5-10.1) 04/07/17 05:20 Magnesium 1.7 mg/dL (1.7-2.9) 04/06/17 05:23 Total Bilirubin 0.40 mg/dL (0.2-1.0) 04/07/17 05:20 AST 27 Units/L (15-37) 04/07/17 05:20 ALT 27 Units/L (12-78) 04/07/17 05:20 Alkaline Phosphatase 89 Units/L (46-116) 04/07/17 05:20 Total Protein 6.4 g/dL (6.4-8.2) 04/07/17 05:20 Albumin 2.3 g/dL (3.4-5.0) L 04/07/17 05:20 Globulin 4.1 g/dL (2.5-4.5) 04/07/17 05:20 Albumin/Globulin Ratio 0.6 Ratio (1.1-2.1) L 04/07/17 05:20 Blood Type O NEGATIVE 04/01/17 17:30 Antibody Screen Negative 04/01/17 17:30 Crossmatch See Detail 04/01/17 17:30 - Plan (1) Infected prosthetic hip Status: Acute Plan: ontinue with the IV vancomycin through the PICC line. We will get a consult with infectious diseases. (2) Mary Grace-prosthetic femoral shaft fracture Status: Acute
--- NOTE | 2017-04-07 23:40 | PCM.PROG ---
Progress Note - Progress Note for Day of Date: 04/03/17 - Subjective Subjective: IS STATUS POST REVISION OF RIGHT TOTAL HIP DUE TO AN INFECTED SPACER AND A MEDIAL DEFICIENCY IN THE RIGHT FEMUR. REVISION WAS DONE BY . TODAY, HE REMAINS IN THE INTENSIVE CARE UNIT FOR CLOSE MONITORING OF HIS BLOOD PRESSURE. HE IS ALERT AND ORIENTED, LYING IN BED ON MORNING ROUNDS. HE CONTINUES WITH COMPLAINTS OF RIGHT HIP PAIN. ON EXAMINATION, LUNGS ARE NOTED CLEAR TO AUSCULTATION. ABDOMEN IS SOFT, ROUND, AND NON TENDER WITH NORMAL BOWEL SOUNDS NOTED IN ALL QUADRANTS. SURGICAL DRESSING TO RIGHT HIP IS NOTED TO BE DRY AND INTACT WITH NO SIGNS OR SYMPTOMS OF INFECTION NOTED AROUND SITE. A HEMOVAC REMAINS INTACT WITH BLOOD DRAINING INTO SYSTEM. HE IS UTILIZING OXYGEN VIA NASAL CANNULA AT 2L/MIN AT THIS TIME. A PICC LINE WAS INSERTED YESTERDAY FOR AN EXTENDED COURSE OF ANTIBIOTICS AFTER DISCHARGE. SINUS TACHYCARDIA IS NOTED ON THE INCLUSION SPECIAL EDUCATION TEACHER WITH HR 104. HIS VITAL SIGNS THIS MORNING ARE 98.3-104-12-99%-149/71. A CBC AND BMP WERE OBTAINED THIS MORNING. ABNORMAL LAB VALUES INCLUDE THE FOLLOWING: WBC RBC 3.22, HGB 9.1, HCT 26.2, CARBON DIOXIDE 32.8, GLUCOSE 133, CALCIUM 8.0. CULTURES OF THE RIGHT HIP WERE OBTAINED DURING SURGERY AND ARE PENDING RESULTS. AN ECHOCARDIOGRAM WAS OBTAINED AND REPORTED AN EJECTION FRACTION OF 64%. PATIENT HAS VANCOMYCIN 500MG IV BID ORDERED FOR PROPHYLAXIS. TODAY, WE WILL CONTINUE WITH CURRENT PLAN OF CARE FOR PATIENT. PHYSICAL THERAPY WILL WORK WITH PATENT TO GET HIM OUT OF BED WITH NONWEIGHT BEARING AND HIP PRECAUTIONS. WE PLAN TO FOLLOW UP WITH AM LABS AND CONTINUE TO MONITOR PATIENT. - Past Medical Family Social History Past Med/Fam/Surg Hx: No changes since H&P Allergies: Allergies Fish Containing Products Allergy (Unknown, Unverified 04/03/17 12:08) acetaminophen [From Percocet] Allergy (Verified 04/01/17 13:54) aspirin Allergy (Verified 04/01/17 13:54) codeine Allergy (Verified 04/01/17 13:54) iodine Allergy (Verified 04/01/17 13:54) oxycodone [From Percocet] Allergy (Verified 04/01/17 13:54) Penicillins Allergy (Verified 04/01/17 13:54) povidone-iodine [From Betadine] Allergy (Verified 04/01/17 13:54) soap [From Betadine] Allergy (Verified 04/01/17 13:54) - Review of Systems ROS: No change since H&P - Vital Signs and I&O's Vital Signs: Temperature 97.7 F Pulse Rate [Apical] 99 Pulse Rate 105 Respiratory Rate 25 Blood Pressure [Left Arm] 116/74 Blood Pressure 112/57 O2 Sat by Pulse Oximetry 95 Intake and Output: Intake & Output 04/05/17 04/06/17 04/07/17 04/08/17 11:59 11:59 11:59 11:59 Intake Total 1565 1714 2315 1621 Output Total 2173 6060 1800 450 Balance -610 -983 796 3876 - Physical Exam Oriented: Normal Eyes: Normal Ear: Normal Nose: Normal Throat: Normal Respiratory: Normal Cardiovascular: Tachycardia : Normal Auscultation: Bowel Sounds: Normal Palpation: Normal Tenderness: Normal Skin: Wound (RIGHT HIP SURGICAL WOUND WITH DRESSING DRY AND INTACT ) Musculoskeletal: Right, Hip, Tender Psychiatric: Normal Mood Description: Calm Affect: Normal Speech Pattern: Clear, Appropriate - Laboratory and Diagnostics Result Diagrams: 04/07/17 05:20 04/07/17 05:20 Labs: 04/01/17 15:50 Hip - Right - Final 04/01/17 16:34 Hip - Right - Final Staphylococcus Epidermidis Laboratory WBC 6.5 X10^3/uL (3.6-10.0) 04/07/17 05:20 RBC 2.99 X10^6/uL (4.7-6.0) L 04/07/17 05:20 Hgb 8.4 g/dL (13.5-18.0) L 04/07/17 05:20 Hct 24.1 % (42.0-54.0) L 04/07/17 05:20 MCV 80.8 fL (80.0-100.0) 04/07/17 05:20 MCH 28.3 pg (27.0-34.0) 04/07/17 05:20 MCHC 35.0 g/dL (33.0-35.0) 04/07/17 05:20 RDW 15.7 % (11.6-16.5) 04/07/17 05:20 Plt Count 297 X10^3/uL (150.0-450.0) 04/07/17 05:20 MPV 7.5 fL (7.4-11.0) 04/07/17 05:20 Neut % 58.1 % (42.0-75.0) 04/07/17 05:20 Lymph % 24.2 % (21.0-51.0) 04/07/17 05:20 [place] % 10.7 % (0.0-13.0) 04/07/17 05:20 Eos % 5.6 % (0.9-2.9) H 04/07/17 05:20 Baso % 1.4 % (0.2-1.0) H 04/07/17 05:20 Neut # 3.8 x10^3/uL (2.2-4.8) 04/07/17 05:20 Lymph # 1.6 X10^3/uL (1.3-2.9) 04/07/17 05:20 [place] # 0.7 x10^3/uL (0.3-0.8) 04/07/17 05:20 Eos # 0.4 x10^3/uL (0.0-0.2) H 04/07/17 05:20 Baso # 0.1 X10^3/uL (0.0-0.1) 04/07/17 05:20 Absolute Nucleated RBC 0.0 /100WBC 04/07/17 05:20 Sodium 139 mmol/L (136-145) 04/07/17 05:20 Corrected Sodium TNP 04/07/17 05:20 Potassium 3.5 mmol/L (3.5-5.1) 04/07/17 05:20 Chloride 103 mmol/L (98-107) 04/07/17 05:20 Carbon Dioxide 30.2 mmol/L (21-32) 04/07/17 05:20 BUN 9 mg/dL (7-18) 04/07/17 05:20 Creatinine 0.84 mg/dL (0.70-1.30) 04/07/17 05:20 Est GFR (MDRD) Af Amer > 60 (>60) 04/07/17 05:20 Est GFR (MDRD) Non-Af > 60 (>60) 04/07/17 05:20 Glucose 90 mg/dL (65-99) 04/07/17 05:20 POC Glucose (mg/dL) 85 mg/dL (65-99) 04/07/17 11:32 Calcium 8.7 mg/dL (8.5-10.1) 04/07/17 05:20 Corrected Calcium 10.1 mg/dL (8.5-10.1) 04/07/17 05:20 Magnesium 1.7 mg/dL (1.7-2.9) 04/06/17 05:23 Total Bilirubin 0.40 mg/dL (0.2-1.0) 04/07/17 05:20 AST 27 Units/L (15-37) 04/07/17 05:20 ALT 27 Units/L (12-78) 04/07/17 05:20 Alkaline Phosphatase 89 Units/L (46-116) 04/07/17 05:20 Total Protein 6.4 g/dL (6.4-8.2) 04/07/17 05:20 Albumin 2.3 g/dL (3.4-5.0) L 04/07/17 05:20 Globulin 4.1 g/dL (2.5-4.5) 04/07/17 05:20 Albumin/Globulin Ratio 0.6 Ratio (1.1-2.1) L 04/07/17 05:20 Blood Type O NEGATIVE 04/01/17 17:30 Antibody Screen Negative 04/01/17 17:30 Crossmatch See Detail 04/01/17 17:30 - Plan (1) Mary Grace-prosthetic femoral shaft fracture Status: Acute Plan: PT/OT WITH NONWEIGHT BEARING AND HIP PRECAUTIONS, ADMINISTER PAIN MEDICATIONS ORDERED, CONTINUE TO MONITOR
== END 2017-04-07 16:15 | disposition home or self-care (01) | DRG 499 ==
LOC: SURG1 13:08 → ICU 20:58
PROVIDERS: ADMIT Orthopaedic Surgery; ATTEND Internal Medicine
PROC: 30233N1 Transfusion of Nonautologous Red Blood Cells into Peripheral Vein, Percutaneous Approach (ICD-10-PCS; 2017-04-01)
PROC: 3E0234Z Introduction of Serum, Toxoid and Vaccine into Muscle, Percutaneous Approach (ICD-10-PCS; 2017-04-01)
PROC: 0QW804Z Revision of Internal Fixation Device in Right Femoral Shaft, Open Approach (ICD-10-PCS; principal; 2017-04-02)
PROC: 05HB33Z Insertion of Infusion Device into Right Basilic Vein, Percutaneous Approach (ICD-10-PCS; 2017-04-02)
PROC: 05WY33Z Revision of Infusion Device in Upper Vein, Percutaneous Approach (ICD-10-PCS; 2017-04-02)
PROC: 30233N1 Transfusion of Nonautologous Red Blood Cells into Peripheral Vein, Percutaneous Approach (ICD-10-PCS; 2017-04-02)
DX: T84.51XA Infection and inflammatory reaction due to internal right hip prosthesis, initial encounter (principal); M97.01XA Periprosthetic fracture around internal prosthetic right hip joint, initial encounter; B95.7 Other staphylococcus as the cause of diseases classified elsewhere; R26.89 Other abnormalities of gait and mobility; I95.89 Other hypotension; R00.0 Tachycardia, unspecified; M25.551 Pain in right hip
CPT/HCPCS: 36415; 36430; 71010; 73552; 76000; 80048; 80053; 83735; 84132; 85025; 86850; 86900; 86901; 86922; 87070; 87075; 87077; 87186; 90686; 93306; 94640; 97535; A4216; A4222; P9016; J0330; J1170; J1650; J2001; J2250; J2270; J2271; J2405; J2710; J3010; J3370; J3490; J7120; J7620

== ENCOUNTER 2017-04-13 10:23 | Emergency (ER) | payer OTHER ==
[2017-04-13 10:30] VITALS: BMI 26.6
[2017-04-13] MEDS ORDERED: NS 1000 ML 1,000 ML IV ONE (10:39)
[2017-04-13] MEDS ORDERED: NS 1000 ML 1,000 ML ONE (10:40)
[2017-04-13 10:44] VITALS: BP 64/38
--- NOTE | 2017-04-13 10:44 | DR.GENAD ---
HPI - PCP Primary Care Physician: jose - Complaint/Symptoms Chief Complaint Doctors Comments: History as stated. Home health nurse is to start medications today. Chief Complaint:: pt stated he had right hip surgery here on 04-01-17. 3 days ago he was sliding back in his chair and felt a a pop in his right thigh and has been having bad pain. Self Treatment fo Chief Complaint: hydrocodone and fental patch - Source History Provided: Patient - Mode of Arrival Mode of Arrival: Ambulatory - Timing Onset of Chief Complaint: 04/11/17 PMH - PMH Past Medical History: Yes Past Medical History: COPD, Depression, Diabetes Past Surgical History: Yes Surgical History: Appendectomy, Cholecystectomy, Ortho Surgery - Family History History of Family Medical Conditions: Yes Family Medical History: Cancer, [place] - Social History Does patient currently use any type of tobacco product: Yes Have you used tobacco products in the last 12 months: Yes Type of Tobacco Use: Cigarettes How many years tobacco product used: 25 Does any household member use tobacco: No Alcohol Use: None Do you use any recreational Drugs:: No Lives With: Family Lives Where: Home - infectious screening In the last 2 months have you had wt loss of >10#?: NO Have you had fever, night sweats or hemotysis?: No Have you traveled outside the country in the last 6 months?: No Isolation: Standard ROS - Review of Systems Eyes: No Symptoms Reported ENTM: No Symptoms Reported Respiratoy: No Symptoms Reported Cardiovascular: No Symptoms Reported Gastrointestinal/Abdominal: No Symptoms Reported Genitourinary: No Symptoms Reported Neurological: No Symptoms Reported Musculoskeletal: Leg (right femur pain ) Integumentary: No Symptoms Reported Hematologic/Lymphatic: No Symptoms Reported Endocrine: No Symptoms Reported Psychiatric: No Symptoms Reported All Other Systems: Reviewed and Negative PE - Vital Signs Vitals: Temperature 98.6 F Pulse Rate [Right Brachial] 81 Pulse Rate 84 Respiratory Rate 16 Blood Pressure [Right Arm] 64/38 Blood Pressure [Left Arm] 116/74 Blood Pressure 74/42 O2 Sat by Pulse Oximetry 100 - General Limitations: No Limitations General Appearance: Alert, In No Apparent Distress - Head Head Exam: Normal Inspection, Atraumatic - Eyes Eye exam: Normal Appearance, PERRL, EOMI - ENT ENT Exam: Normal Exam, Normal Oropharynx External Ear Exam: Normal External Inspection TM/Canal Exam: Bilateral Normal Nose Exam: Normal Nose Exam Mouth Exam: Normal Inspection Throat Exam: Normal Inspection - Neck Neck Exam: Normal Inspection, Full ROM - Chest Chest Inspection: Normal Inspection - Respiratory Respiratory Exam: Normal Lung Sounds Bilat Respiratory Exam: Lower Clear to Auscultation - Cardiovascular Cardiovascular Exam: Regular Rate, Normal Rhythm - Abdominal Exam Abdominal Exam: Normal Inspection Abdominal Tenderness: negative: RUQ, RLQ, LUQ, LLQ, Epigastrium, Suprapubic, Diffuse, Mild, Moderate, Severe, Other - Extremities Extremities Exam: Tenderness (right femur distal 1/3) - Back Back Exam: Normal Inspection - Neurologic Neurological Exam: Alert, Oriented X3, CN II-XII Intact - Skin Skin Exam: Warm, Dry, Intact ROR - Labs Reviewed Result Diagrams: 04/13/17 10:50 04/13/17 10:50 Laboratory: WBC 10.9 X10^3/uL (3.6-10.0) H 04/13/17 10:50 RBC 3.35 X10^6/uL (4.7-6.0) L 04/13/17 10:50 Hgb 9.2 g/dL (13.5-18.0) L 04/13/17 10:50 Hct 27.3 % (42.0-54.0) L 04/13/17 10:50 MCV 81.5 fL (80.0-100.0) 04/13/17 10:50 MCH 27.3 pg (27.0-34.0) 04/13/17 10:50 MCHC 33.5 g/dL (33.0-35.0) 04/13/17 10:50 RDW 15.7 % (11.6-16.5) 04/13/17 10:50 Plt Count 511 X10^3/uL (150.0-450.0) H 04/13/17 10:50 MPV 7.5 fL (7.4-11.0) 04/13/17 10:50 Neut % 68.4 % (42.0-75.0) 04/13/17 10:50 Lymph % 18.7 % (21.0-51.0) L 04/13/17 10:50 [place] % 7.3 % (0.0-13.0) 04/13/17 10:50 Eos % 4.3 % (0.9-2.9) H 04/13/17 10:50 Baso % 1.3 % (0.2-1.0) H 04/13/17 10:50 Neut # 7.4 x10^3/uL (2.2-4.8) H 04/13/17 10:50 Lymph # 2.0 X10^3/uL (1.3-2.9) 04/13/17 10:50 [place] # 0.8 x10^3/uL (0.3-0.8) 04/13/17 10:50 Eos # 0.5 x10^3/uL (0.0-0.2) H 04/13/17 10:50 Baso # 0.1 X10^3/uL (0.0-0.1) 04/13/17 10:50 Absolute Nucleated RBC 0.0 /100WBC 04/13/17 10:50 Sodium 136 mmol/L (136-145) 04/13/17 10:50 Corrected Sodium 138 mmol/L (136-145) 04/13/17 10:50 Potassium 3.3 mmol/L (3.5-5.1) L 04/13/17 10:50 Chloride 100 mmol/L (98-107) 04/13/17 10:50 Carbon Dioxide 26.8 mmol/L (21-32) 04/13/17 10:50 BUN 10 mg/dL (7-18) 04/13/17 10:50 Creatinine 1.17 mg/dL (0.70-1.30) 04/13/17 10:50 Est GFR (MDRD) Af Amer > 60 (>60) 04/13/17 10:50 Est GFR (MDRD) Non-Af > 60 (>60) 04/13/17 10:50 Glucose 204 mg/dL (65-99) H 04/13/17 10:50 Calcium 7.9 mg/dL (8.5-10.1) L 04/13/17 10:50 Corrected Calcium 9.0 mg/dL (8.5-10.1) 04/13/17 10:50 Total Bilirubin 0.30 mg/dL (0.2-1.0) 04/13/17 10:50 AST 16 Units/L (15-37) 04/13/17 10:50 ALT 15 Units/L (12-78) 04/13/17 10:50 Alkaline Phosphatase 120 Units/L (46-116) H 04/13/17 10:50 Total Protein 6.9 g/dL (6.4-8.2) 04/13/17 10:50 Albumin 2.6 g/dL (3.4-5.0) L 04/13/17 10:50 Globulin 4.3 g/dL (2.5-4.5) 04/13/17 10:50 Albumin/Globulin Ratio 0.6 Ratio (1.1-2.1) L 04/13/17 10:50 - XRAY XRAY Interpreted by: Self (Femur no acute fracture noted) - Diagnosis Discharge Problem: Pain in right femur - Discharge Plan Condition: Stable - Follow ups/Referrals Follow ups/Referrals: EUNICE STEPHENSON [Primary Care Provider] - 3 days - Instructions
[2017-04-13 11:00] LABS: BASOPHILS # (AUTO) 0.1 X10^3/uL (0.0-0.1); BASOPHILS % (AUTO) 1.3 % (0.2-1.0); EOSINOPHILS # (AUTO) 0.5 x10^3/uL (0.0-0.2); EOSINOPHILS % (AUTO) 4.3 % (0.9-2.9); HEMATOCRIT 27.3 % (42.0-54.0); HEMOGLOBIN 9.2 g/dL (13.5-18.0); LYMPHOCYTES % (AUTO) 18.7 % (21.0-51.0); MEAN CORPUSCULAR HEMOGLOBIN 27.3 pg (27.0-34.0); MEAN CORPUSCULAR HGB CONC 33.5 g/dL (33.0-35.0); MEAN CORPUSCULAR VOLUME 81.5 fL (80.0-100.0); MEAN PLATELET VOLUME 7.5 fL (7.4-11.0); MONOCYTES # (AUTO) 0.8 x10^3/uL (0.3-0.8); MONOCYTES % (AUTO) 7.3 % (0.0-13.0); NEUTROPHILS # (AUTO) 7.4 x10^3/uL (2.2-4.8); NEUTROPHILS % (AUTO) 68.4 % (42.0-75.0); PLATELET COUNT 511 X10^3/uL (150.0-450.0); RED BLOOD COUNT 3.35 X10^6/uL (4.7-6.0); RED CELL DISTRIBUTION WIDTH 15.7 % (11.6-16.5); WHITE BLOOD COUNT 10.9 X10^3/uL (3.6-10.0)
[2017-04-13 11:11] LABS: ALANINE AMINOTRANSFERASE 15 Units/L (12-78); ALBUMIN 2.6 g/dL (3.4-5.0); ALKALINE PHOSPHATASE 120 Units/L (46-116); ASPARTATE AMINO TRANSFERASE 16 Units/L (15-37); BLOOD UREA NITROGEN 10 mg/dL (7-18); CALCIUM 7.9 mg/dL (8.5-10.1); CARBON DIOXIDE 26.8 mmol/L (21-32); CHLORIDE 100 mmol/L (98-107); COR NA(FOR HYPERGLY) 138 mmol/L (136-145); CREATININE 1.17 mg/dL (0.70-1.30); SODIUM 136 mmol/L (136-145); TOTAL PROTEIN 6.9 g/dL (6.4-8.2); eGFR BLACK RACES > 60 (>60); eGFR NON BLACK RACES > 60 (>60)
[2017-04-13] MEDS ORDERED: K-DUR TAB 20 MEQ PO ONE ×2 (11:38→11:49)
--- NOTE | 2017-04-13 12:58 | RAD ---
HISTORY: Right hip pain Study: Right femur AP and lateral Comparison: 04/02/2017 Findings: The patient is status post right hip hemiarthroplasty. There is slight lateral displacement of the fe moral head within the acetabulum compared with the prior examination. The patient is also status post open reduction internal fixation of a periprosthetic fracture with 3 wires. There may well be a alejandra prosthetic re-fracture present at the base of the greater trochanter. CT correlation would be of furt her diagnostic value. IMPRESSION: Status post open reduction internal fixation of a periprosthetic right hip fracture which has changed somewhat in appearance when compared with the immediately post operative image with a possible acute re-fracture and some lateral subluxation of the femoral head prosthesis in the acetabulum. CT is rec ommended for further evaluation. Reported By:
== END 2017-04-13 12:04 | disposition home or self-care (01) ==
LOC: ER 10:36
DX: M25.551 Pain in right hip (principal)
CPT/HCPCS: 36415; 73552; 80053; 85025; 96365; 99282; 99283